=== PATIENT | female | born 1935 | race Caucasian/White ===

== ENCOUNTER 2016-10-20 09:41 | Day surgery (SDC) | payer OTHER ==
[~2016-10-20] VITALS: Ht 154.9 cm; Wt 65.8 kg
[~2016-10-20 09:41] MED LIST: AMOXICILLIN500 MG PO; ASPIRIN81 M2 PO; ATENOLOL100 MG PO; CARBIDOPA/LEVO1 EACH PO; ESCITALOPRAM OX10 MG PO; FLONASE16 G1 BOTH NARES; KEFLEX500 MG PO; LOVASTATIN40 MG PO; NEURONTIN300 MG PO; PREDNISONE5 MG PO; PRILOSEC20 MG PO; ULTRAM50 MG PO
== END 2016-10-20 11:43 | disposition home or self-care (01) ==
LOC: PAIN 09:41 → SDC 10:15 → PAIN 11:43
DX: M47.26 Other spondylosis with radiculopathy, lumbar region (principal); M47.16 Other spondylosis with myelopathy, lumbar region; M48.06 Spinal stenosis, lumbar region; I10 Essential (primary) hypertension; K21.9 Gastro-esophageal reflux disease without esophagitis; J44.9 Chronic obstructive pulmonary disease, unspecified; F41.8 Other specified anxiety disorders; M81.0 Age-related osteoporosis without current pathological fracture; E66.3 Overweight; R73.03 Prediabetes; E55.9 Vitamin D deficiency, unspecified; Z79.82 Long term (current) use of aspirin; Z79.891 Long term (current) use of opiate analgesic
CPT/HCPCS: J1100; J2250; J3010

== ENCOUNTER 2016-11-19 09:36 | Day surgery (SDC) | payer OTHER ==
[~2016-11-19] VITALS: Ht 154.9 cm; Wt 65.8 kg
== END 2016-11-19 10:43 | disposition home or self-care (01) ==
LOC: PAIN 09:36 → SDC 10:00 → PAIN 10:00
DX: M47.26 Other spondylosis with radiculopathy, lumbar region (principal); M47.16 Other spondylosis with myelopathy, lumbar region; M48.06 Spinal stenosis, lumbar region; I12.9 Hypertensive chronic kidney disease with stage 1 through stage 4 chronic kidney disease, or unspecified chronic kidney disease; N18.3 Chronic kidney disease, stage 3 (moderate); F41.8 Other specified anxiety disorders; K21.9 Gastro-esophageal reflux disease without esophagitis; E66.3 Overweight; Z68.27 Body mass index [BMI] 27.0-27.9, adult; Z79.82 Long term (current) use of aspirin; Z79.891 Long term (current) use of opiate analgesic
CPT/HCPCS: J1100; J3010

== ENCOUNTER 2017-01-06 13:18 | Inpatient (IN) | payer OTHER ==
[~2017-01-06] VITALS: Ht 154.9 cm; Wt 65.3 kg
[~2017-01-06 13:18] MED LIST changes: +CARBIDOPA-LEVO1 EAC7 PO; -CARBIDOPA/LEVO1 EACH PO
[2017-01-06 14:10] LABS: HEMATOCRIT 41.3 % (36.0-46.0); MCH 29.9 PG (29.0-34.0); MCHC 32.9 G/DL (30.0-36.0); MCV 90.8 FL (83-99); MEAN PLAT.VOLUME 10.5 uM^3 (9.5-12.4); PLATELET COUNT 229 K/uL (156-360); RBC DIS.WIDTH-CV 12.7 % (11.8-14.6); RBC DIS.WIDTH-SD 42.4 % (39-53); RED BLOOD COUNT 4.55 M/uL (3.80-5.20); WHITE BLOOD COUNT 12.4 K/uL (4.1-10.2)
[2017-01-06 14:28] LABS: CHLORIDE 103 mEq/L (99-109); POTASSIUM 4.2 mEq/L (3.7-5.4); SODIUM 140 mEq/L (136-147)
[2017-01-06 14:29] LABS: GLUCOSE 96 mg/dL (70-99)
[2017-01-06 14:31] LABS: ANION GAP 12 MEQ/L (2-14)
[2017-01-06 14:33] LABS: GFR ESTIMATE (CALCULATED) > 59 mL/min/
[2017-01-06 14:34] LABS: UREA NITROGEN (BUN) 22 mg/dL (9-23)
[2017-01-06 15:04] LABS: ADD MIUA? YES; BILIRUBIN NEGATIVE; BLOOD SMALL; COLOR STRAW ((YELLOW)); GLUCOSE (STRIP) NEGATIVE; KETONES NEGATIVE; LEUKOCYTES NEGATIVE; NITRITE NEGATIVE; PROTEIN (STRIP) NEGATIVE; SPECIFIC GRAVITY 1.006 (1.000-1.030); UROBILINOGEN 0.2 MG/DL (0.2-1.0)
[2017-01-06 15:06] LABS: BACTERIA NONE SEEN /HPF; EPITHELIAL CELLS NONE SEEN /HPF; MUCUS NONE SEEN /LPF; RED BLOOD CELLS 0-5 /HPF (0-5); UCUL ADDED? NO; WHITE BLOOD CELLS 0-5 /HPF (0-5)
[2017-01-06] MEDS ORDERED: HYDROCODON-ACE1 EAC7 PO (16:47)
[2017-01-06] MEDS ORDERED: LISINOPRIL10 MG PO (16:48)
[2017-01-06] MEDS ORDERED: MULTI-VITAMIN1 EAC4 PO (16:49)
[2017-01-06 19:05] VITALS: BP 170/77
[2017-01-06 21:45] VITALS: BP 129/70
[2017-01-06 23:34] VITALS: BP 128/62
[2017-01-07 05:52] VITALS: BP 146/71
[2017-01-07 07:41] VITALS: BP 165/82
[2017-01-07 08:01] LABS: HEMATOCRIT 40.1 % (36.0-46.0); MCH 29.8 PG (29.0-34.0); MCHC 31.9 G/DL (30.0-36.0); MCV 93.3 FL (83-99); MEAN PLAT.VOLUME 10.6 uM^3 (9.5-12.4); PLATELET COUNT 210 K/uL (156-360); RBC DIS.WIDTH-CV 12.9 % (11.8-14.6); RBC DIS.WIDTH-SD 44.6 % (39-53); WHITE BLOOD COUNT 8.4 K/uL (4.1-10.2)
[2017-01-07 08:03] LABS: PROTHROMBIN TIME 11.5 SEC (10.2-12.9)
[2017-01-07 08:06] LABS: PTT 24.8 SEC (25-37)
[2017-01-07 08:28] LABS: ANION GAP 8 MEQ/L (2-14); CHLORIDE 106 MEQ/L (99-109); GFR ESTIMATE (CALCULATED) > 59 mL/min/; GLUCOSE 100 mg/dL (70-99); POTASSIUM 4.2 MEQ/L (3.7-5.4); SAMPLE HEMOLYSIS CHECK 0; SAMPLE ICTERIC CHECK 0; SAMPLE LIPEMIA CHECK 0; SODIUM 143 MEQ/L (136-147); UREA NITROGEN (BUN) 11 mg/dL (9-23)
[2017-01-07 11:31] VITALS: BP 132/69
[2017-01-07 17:14] VITALS: BP 130/59
[2017-01-07 20:01] VITALS: BP 133/89
[2017-01-08] VITALS (7 sets, daily range): BP systolic 123–163; BP diastolic 60–78
[2017-01-08 06:21] LABS: EOSINOPHIL (%) 2.9 % (0-5); EOSINOPHIL COUNT 0.2 K/uL (0-0.3); IMMATURE GRANULOCYTE (%) 0.3 % (0.0-0.7); INSTRUMENT ABS NEUTROPHIL CT 3.4 K/uL; LYMPHOCYTE COUNT 2.2 K/uL (1.0-2.8); MCH 29.6 PG (29.0-34.0); MCHC 31.9 G/DL (30.0-36.0); MCV 92.7 FL (83-99); MEAN PLAT.VOLUME 10.5 uM^3 (9.5-12.4); MONOCYTE (%) 11.7 % (3-12); MONOCYTE COUNT 0.8 K/uL (0-0.8); NEUTROPHIL (%) 51.3 % (45-76); NEUTROPHIL COUNT 3.4 K/uL (1.8-6.4); PLATELET COUNT 190 K/uL (156-360); RBC DIS.WIDTH-CV 12.7 % (11.8-14.6); RBC DIS.WIDTH-SD 43.6 % (39-53); RED BLOOD COUNT 3.99 M/uL (3.80-5.20); WHITE BLOOD COUNT 6.6 K/uL (4.1-10.2)
[2017-01-08 11:41] LABS: HEMATOCRIT 37.8 % (36.0-46.0); MCV 93.6 FL (83-99)
[2017-01-09 06:29] VITALS: BP 149/73
[2017-01-09 07:43] VITALS: BP 163/89
[2017-01-09 08:30] LABS: C DIFF TOXIN NEGATIVE (NEGATIVE)
[2017-01-09 08:31] LABS: PROBE CHECK PASS; SPECIMEN PROCESSING CONTROL PASS
[2017-01-09 10:21] VITALS: BP 161/72
[2017-01-09] MEDS ORDERED: CIPRO500 MG PO (15:07)
[2017-01-09] MEDS ORDERED: FLAGYL500 MG PO (15:07)
[2017-01-09 15:48] VITALS: BP 141/76
== END 2017-01-09 15:50 | disposition home or self-care (01) | DRG 392 ==
LOC: EME 13:18 → RME 13:18 → 5EAST 16:25 → EDOF 16:25 → ENRESERV 16:27 → 5EAST 17:53 → ENPENDDIS 01-09 → 5EAST 01-09 15:50
PROVIDERS: Internal Medicine; Internal Medicine Gastroenterology; Physician Assistant; Student in an Organized Health Care Education/Training Program
DX: K57.92 Diverticulitis of intestine, part unspecified, without perforation or abscess without bleeding (principal); I10 Essential (primary) hypertension; E78.5 Hyperlipidemia, unspecified; D72.829 Elevated white blood cell count, unspecified; M35.3 Polymyalgia rheumatica; G25.81 Restless legs syndrome; Z86.010 Personal history of colon polyps; Z90.49 Acquired absence of other specified parts of digestive tract; Z79.52 Long term (current) use of systemic steroids; Z83.3 Family history of diabetes mellitus
CPT/HCPCS: 74177; 80048; 80069; 81003; 85014; 85018; 85025; 85027; 85610; 85730; 86850; 86900; 86901; 87040; 87493; 99281; 99285; J0744; J2405; J7030; J7042; J7512; S0030

== ENCOUNTER 2017-03-15 12:50 | Day surgery (SDC) | payer OTHER ==
[~2017-03-15] VITALS: Ht 154.9 cm; Wt 64.4 kg
[~2017-03-15 12:50] MED LIST changes: +ASPIR 8181 M1 PO; -ASPIRIN81 M2 PO; +CIPRO500 MG PO; +DOXYCYCLINE HY100 MG PO; -ESCITALOPRAM OX10 MG PO; +FLAGYL500 MG PO; +HYDROCODON-ACE1 EAC7 PO; +LEXAPRO10 MG PO; +LISINOPRIL10 MG PO; +MULTI-VITAMIN1 EAC4 PO; +VENTOLIN HFA18 GM IH; +[UNRECOGNIZED DRUG - OTHER] PO
[2017-03-15] MEDS ORDERED: TYLENOL EXTRA500 MG PO (13:24)
== END 2017-03-15 14:30 | disposition home or self-care (01) ==
LOC: PAIN 12:50 → SDC 13:15 → PAIN 14:30
DX: M47.26 Other spondylosis with radiculopathy, lumbar region (principal); M47.16 Other spondylosis with myelopathy, lumbar region; M48.061 Spinal stenosis, lumbar region without neurogenic claudication; M47.812 Spondylosis without myelopathy or radiculopathy, cervical region; I12.9 Hypertensive chronic kidney disease with stage 1 through stage 4 chronic kidney disease, or unspecified chronic kidney disease; N18.3 Chronic kidney disease, stage 3 (moderate); R73.03 Prediabetes; K21.9 Gastro-esophageal reflux disease without esophagitis; Z79.82 Long term (current) use of aspirin
CPT/HCPCS: J1030; J2250; J3010; S0020

== ENCOUNTER 2017-04-01 06:58 | Day surgery (SDC) | payer OTHER ==
[~2017-04-01] VITALS: Ht 154.9 cm; Wt 64.4 kg
[~2017-04-01 06:58] MED LIST changes: +TYLENOL EXTRA500 MG PO
== END 2017-04-01 08:40 | disposition home or self-care (01) ==
LOC: PAIN 06:58
DX: M47.26 Other spondylosis with radiculopathy, lumbar region (principal); M54.5 Low back pain; G89.29 Other chronic pain; M47.16 Other spondylosis with myelopathy, lumbar region; M48.061 Spinal stenosis, lumbar region without neurogenic claudication; M47.812 Spondylosis without myelopathy or radiculopathy, cervical region; I12.9 Hypertensive chronic kidney disease with stage 1 through stage 4 chronic kidney disease, or unspecified chronic kidney disease; N18.3 Chronic kidney disease, stage 3 (moderate); J44.9 Chronic obstructive pulmonary disease, unspecified; K21.9 Gastro-esophageal reflux disease without esophagitis; R01.1 Cardiac murmur, unspecified; E78.00 Pure hypercholesterolemia, unspecified; Z79.891 Long term (current) use of opiate analgesic; Z79.82 Long term (current) use of aspirin; Z88.0 Allergy status to penicillin; R73.03 Prediabetes
CPT/HCPCS: J1030; J2250; J3010; S0020

== ENCOUNTER 2017-08-16 18:35 | Emergency (ER) | payer OTHER ==
[~2017-08-16] VITALS: Ht 154.9 cm; Wt 66.8 kg
[2017-08-16 21:34] VITALS: BP 140/88
== END 2017-08-16 21:35 | disposition home or self-care (01) ==
LOC: EME 18:35
DX: M79.89 Other specified soft tissue disorders (principal); E78.5 Hyperlipidemia, unspecified; G25.81 Restless legs syndrome; F32.9 Major depressive disorder, single episode, unspecified; Z79.82 Long term (current) use of aspirin; Z93.3 Colostomy status; Z90.49 Acquired absence of other specified parts of digestive tract; Z88.5 Allergy status to narcotic agent; Z88.0 Allergy status to penicillin
CPT/HCPCS: 93971

== ENCOUNTER 2017-11-23 09:26 | Day surgery (SDC) | payer OTHER | END 2017-11-23 11:05 | disposition home or self-care (01) | LOC: PAIN 09:26 → SDC 10:00 → PAIN 10:00 | DX: M47.816 Spondylosis without myelopathy or radiculopathy, lumbar region (principal); M48.061 Spinal stenosis, lumbar region without neurogenic claudication; M54.16 Radiculopathy, lumbar region; I12.9 Hypertensive chronic kidney disease with stage 1 through stage 4 chronic kidney disease, or unspecified chronic kidney disease; N18.3 Chronic kidney disease, stage 3 (moderate); J44.9 Chronic obstructive pulmonary disease, unspecified; K21.9 Gastro-esophageal reflux disease without esophagitis; R73.03 Prediabetes; Z79.82 Long term (current) use of aspirin; Z79.891 Long term (current) use of opiate analgesic | CPT/HCPCS: J1030; J2250; S0020 ==

== ENCOUNTER 2017-12-23 20:43 | Emergency (ER) | payer OTHER ==
[~2017-12-23] VITALS: Ht 160 cm; Wt 58.8 kg
[2017-12-24] VITALS: BP 166/85
== END 2017-12-24 00:51 | disposition home or self-care (01) ==
LOC: EME 20:43
DX: S06.0X0A Concussion without loss of consciousness, initial encounter (principal); S00.83XA Contusion of other part of head, initial encounter; M54.2 Cervicalgia; W01.0XXA Fall on same level from slipping, tripping and stumbling without subsequent striking against object, initial encounter; M47.892 Other spondylosis, cervical region; I10 Essential (primary) hypertension; E78.5 Hyperlipidemia, unspecified; J44.9 Chronic obstructive pulmonary disease, unspecified; Z79.82 Long term (current) use of aspirin
CPT/HCPCS: 70450; 70486; 72125